=== PATIENT | male | born 1970 | race Hispanic/Latino ===

== ENCOUNTER 2020-07-24 18:50 | Emergency (ER) | payer SELFPAY ==
[2020-07-24] MEDS ORDERED: ORPHENADRINE CITRATE 30 MG/ML ML ONE (19:55)
[2020-07-24] MEDS ORDERED: KETOROLAC TROMETHAMINE 60 MG/2 ML VIAL ONE (19:56)
[2020-07-24] MEDS ORDERED: TETANUS/DIPHTHERIA TOXOID [ADULT] 0.5 ML VIAL IM ONE (20:57)
== END 2020-07-24 21:05 | disposition home or self-care (01) ==
LOC: EDH 18:50
DX: S81.811A Laceration without foreign body, right lower leg, initial encounter (principal); S40.012A Contusion of left shoulder, initial encounter; S80.02XA Contusion of left knee, initial encounter; S56.212A Strain of other flexor muscle, fascia and tendon at forearm level, left arm, initial encounter; W54.0XXA Bitten by dog, initial encounter; Y93.89 Activity, other specified; Y92.488 Other paved roadways as the place of occurrence of the external cause; Y99.8 Other external cause status
CPT/HCPCS: 73030; 73080; 73562; 73590; 90471; 90714; 96372 ×2; 99284; J1885; J2360

== ENCOUNTER 2021-01-11 16:10 | Emergency (ER) | payer OTHER, SELFPAY ==
[~2021-01-11] VITALS: Ht 157.5 cm; Wt 63.5 kg
[2021-01-11 16:11] VITALS: BP 151/96
[2021-01-11 16:33] LABS: BASOPHILS % (AUTO) 0.2 % (0.0-5.0); EOSINOPHILS % (AUTO) 0.2 % (0.0-8.0); HEMATOCRIT 43.7 % (42-54); LYMPHOCYTES % (AUTO) 8.2 % (21.0-51.0); MEAN CORPUSCULAR HEMOGLOBIN 29.9 pg (27.0-33.0); MEAN CORPUSCULAR HGB CONC 34.1 g/dL (32.0-36.0); MEAN CORPUSCULAR VOLUME 87.8 fL (79-99); MONOCYTES % (AUTO) 5.4 % (3.0-13.0); NEUTROPHILS % (AUTO) 85.8 % (40.0-77.0); PLATELET COUNT (AUTO) 307 K/uL (130-400); RED BLOOD CELL COUNT(AUTO) 4.98 MIL/uL (4.50-6.20); RED CELL DISTRIBUTION WIDTH 12.5 % (11.0-15.5); WHITE BLOOD COUNT (AUTO) 12.6 K/uL (4.8-10.8)
[2021-01-11 16:45] LABS: POTASSIUM 3.7 mmol/L (3.5-5.1)
[2021-01-11 16:51] LABS: ALBUMIN 4.1 g/dL (3.5-5.0); BILIRUBIN,TOTAL 0.8 mg/dL (0.2-1.0)
== END 2021-01-11 19:45 | disposition left against medical advice (07) ==
LOC: EDH 16:10
DX: R10.9 Unspecified abdominal pain (principal); R11.2 Nausea with vomiting, unspecified; Z20.822 Contact with and (suspected) exposure to COVID-19; Z53.21 Procedure and treatment not carried out due to patient leaving prior to being seen by health care provider
CPT/HCPCS: 36415; 80053; 82150; 83690; 85025; 87635; 87804 ×2; C9803